=== PATIENT | female | born 1985 | race Caucasian/White ===

== ENCOUNTER 2018-03-24 11:13 | Outpatient (CLI) | payer OTHER | END 2018-03-24 14:10 | disposition home or self-care (01) | LOC: OBT 11:13 → L-D 11:14 → OBT 14:10 | DX: O36.8130 Decreased fetal movements, third trimester, not applicable or unspecified (principal); Z3A.39 39 weeks gestation of pregnancy | CPT/HCPCS: 76815; 76818 ==

== ENCOUNTER 2018-03-27 06:05 | Inpatient (IN) | payer OTHER ==
[2018-03-27] MEDS ORDERED: OXYTOCIN 30 UNITS/LR 500 ML IV ×2 (06:30→10:00)
[2018-03-27] MEDS ORDERED: MISOPROSTOL 200 MCG TAB PR ×2 (06:30→10:00)
[2018-03-27] MEDS ORDERED: METHYLERGONOVINE 0.2 MG INJ IM ×2 (06:30→10:00)
[2018-03-27] MEDS ORDERED: CARBOPROST 250 MCG INJ IM ×2 (06:30→10:00)
[2018-03-27] MEDS: LACTATED RINGER'S 1,000 ML IV ×3 (06:44→22:10)
[2018-03-27 06:55] LABS: ADD MAN DIFF? NO
[2018-03-27 06:56] LABS: BASOPHILS % 0.3 % (0.0-2.0); EOSINOPHILS # 0.1 10^3/ul (0.0-0.5); EOSINOPHILS % 1.1 % (0.0-7.0); HEMOGLOBIN 12.8 g/dl (12.0-16.0); LYMPHOCYTES # 3.2 10^3/ul (0.8-2.9); MEAN CORPUSCULAR HEMOGLOBIN 27.8 pg (29.0-33.0); MEAN CORPUSCULAR HGB CONC 32.8 g/dl (32.0-37.0); MEAN CORPUSCULAR VOLUME 84.8 fl (82.0-101.0); MEAN PLATELET VOLUME 12.5 fl (7.4-10.4); MONOCYTES % 9.7 % (0.0-11.0); NEUTROPHILS % 57.7 % (39.0-77.0); PLATELET COUNT 137 10^3/UL (140-415)
[2018-03-27 06:56] LABS: WHITE BLOOD COUNT 10.4 10^3/ul (4.8-10.8)
[2018-03-27 07:17] LABS: GLUCOSE 88 mg/dl (70-220)
[2018-03-27] MEDS ORDERED: ONDANSETRON 4 MG INJ ×2 (07:53→08:23)
[2018-03-27] MEDS ORDERED: CITRIC ACID/NA CITRATE 30 ML CUP (07:53)
[2018-03-27 08:17] LABS: HEPATITIS B SURFACE ANTIGEN NEGATIVE (NEGATIVE)
[2018-03-27] MEDS ORDERED: morphine SULFATE/PF (10 MG/10 ML) INJ (08:23)
[2018-03-27] MEDS ORDERED: PHENYLephrine (100 MCG/ML) 5ML SYG ×2 (08:23→09:26)
[2018-03-27] MEDS ORDERED: KETOROLAC 30 MG INJ (08:23)
[2018-03-27] MEDS ORDERED: METOCLOPRAMIDE 10 MG INJ (08:23)
[2018-03-27] MEDS ORDERED: DEXAMETHASONE 4 MG/ML 1 ML INJ (08:23)
[2018-03-27] MEDS ORDERED: OXYTOCIN 10 UNIT INJ (08:23)
[2018-03-27] MEDS ORDERED: BUPIVACAINE 0.75%/DEXT (SPINAL) 2 ML INJ ×2 (08:23→11:22)
[2018-03-27] MEDS: CITRIC ACID/NA CITRATE 30 ML CUP PO (08:32)
[2018-03-27] MEDS: ONDANSETRON 4 MG INJ IV ×2 (08:33→17:49)
[2018-03-27] MEDS: CEFAZOLIN 2 GM/50 ML (PMX) 50 ML IV (09:30)
[2018-03-27 09:32] LABS: PT RATIO 0.9
[2018-03-27 09:34] LABS: INR 0.81; PARTIAL THROMBOPLASTIN TIME 25.9 Sec (25.0-35.0); PROTIME 11.2 Sec (11.9-14.9)
[2018-03-27] MEDS ORDERED: OXYCODONE/ACETAMINOPHEN (5/325) TAB PO ×3 (10:00→11:00)
[2018-03-27] MEDS: OXYTOCIN 30 UNITS/LR 500 ML IV ×2 (10:22→13:15)
[2018-03-27] MEDS ORDERED: morphine 2 MG INJ IV ×2 (10:30)
[2018-03-27] MEDS ORDERED: NALOXONE (0.4 MG/ML) INJ IV (10:30)
[2018-03-27] MEDS ORDERED: HYDROmorphONE 1 MG/5 ML IV SYRINGE IV ×3 (10:30→11:00)
[2018-03-27] MEDS ORDERED: HYDROmorphONE 0.5 MG/0.5 ML SYG IV ×2 (10:30)
[2018-03-27] MEDS ORDERED: DIPHENHYDRAMINE 50 MG INJ IV ×2 (10:30→11:00)
[2018-03-27] MEDS ORDERED: ACETAMINOPHEN 500 MG TAB PO (10:30)
[2018-03-27] MEDS ORDERED: NALBUPHINE HCL (10 MG/1 ML) INJ IV (10:30)
[2018-03-27] MEDS ORDERED: HYDROCODONE/APAP (5/325) TAB PO (10:30)
[2018-03-27] MEDS ORDERED: FENTAnyl 50 MCG/ML VIAL IV ×3 (11:00)
[2018-03-27] MEDS ORDERED: EPHEDrine SULFATE 50 MG/5 ML SYG IV (11:00)
[2018-03-27] MEDS ORDERED: MEPERIDINE 25 MG INJ IV (11:00)
[2018-03-27] MEDS ORDERED: METOCLOPRAMIDE 10 MG INJ IV (11:00)
[2018-03-27] MEDS ORDERED: ONDANSETRON 4 MG INJ IV (11:00)
[2018-03-27] MEDS: KETOROLAC 30 MG INJ IV (15:08)
[2018-03-27 18:40] LABS: RAPID PLASMA REAGIN NONREACTIVE (NR)
[2018-03-27] MEDS: ACCU-CHEK XX ×2 (20:05)
[2018-03-27] MEDS: SENNA/DOCUSATE NA (8.6MG/50MG) TAB PO (21:00)
[2018-03-28] MEDS: LACTATED RINGER'S 1,000 ML IV (05:55)
[2018-03-28] MEDS: KETOROLAC 30 MG INJ IV (05:56)
[2018-03-28] MEDS: ACCU-CHEK XX ×4 (07:30→20:43)
[2018-03-28 08:05] LABS: ADD MAN DIFF? NO
[2018-03-28 08:10] LABS: ABNORMAL IP MESSAGE 1; BASOPHILS % 0.3 % (0.0-2.0); EOSINOPHILS % 0.3 % (0.0-7.0); HEMATOCRIT 32.9 % (37.0-47.0); HEMOGLOBIN 10.9 g/dl (12.0-16.0); LYMPHOCYTES # 3.7 10^3/ul (0.8-2.9); LYMPHOCYTES % 31.1 % (15.0-51.0); MEAN CORPUSCULAR HEMOGLOBIN 28.2 pg (29.0-33.0); MEAN CORPUSCULAR HGB CONC 33.1 g/dl (32.0-37.0); MEAN CORPUSCULAR VOLUME 85.2 fl (82.0-101.0); MEAN PLATELET VOLUME 13.1 fl (7.4-10.4); MONOCYTE # 1.3 10^3/ul (0.3-0.9); MONOCYTES % 10.4 % (0.0-11.0); NEUTROPHIL # 6.9 10^3/ul (1.6-7.5); NEUTROPHILS % 57.7 % (39.0-77.0); PLATELET COUNT 129 10^3/UL (140-415); RED BLOOD COUNT 3.86 10^6/ul (4.20-5.40); RED CELL DISTRIBUTION WIDTH 14.2 % (11.5-14.5)
[2018-03-28 08:25] LABS: POSITIVE DIFF @See below
[2018-03-28] MEDS: IBUPROFEN 600 MG TAB PO ×4 (08:40→23:53)
[2018-03-28] MEDS ORDERED: OXYCODONE/ACETAMINOPHEN (5/325) TAB PO (08:40)
[2018-03-28] MEDS: SENNA/DOCUSATE NA (8.6MG/50MG) TAB PO ×2 (10:18→20:43)
[2018-03-28] MEDS: OXYCODONE/ACETAMINOPHEN (5/325) TAB PO (13:34)
[2018-03-28] MEDS: FERROUS SULFATE (EC) 325 MG TAB PO (20:43)
[2018-03-29] MEDS: OXYCODONE/ACETAMINOPHEN (5/325) TAB PO ×2 (02:52→13:31)
[2018-03-29] MEDS: IBUPROFEN 600 MG TAB PO ×3 (05:29→18:07)
[2018-03-29] MEDS: ACCU-CHEK XX ×4 (08:25→20:51)
[2018-03-29] MEDS: SENNA/DOCUSATE NA (8.6MG/50MG) TAB PO ×2 (09:09→20:51)
[2018-03-29] MEDS: FERROUS SULFATE (EC) 325 MG TAB PO ×2 (09:09→20:51)
[2018-03-29] MEDS: LANOLIN 7 GM TUBE TOP (12:39)
[2018-03-30] MEDS: IBUPROFEN 600 MG TAB PO ×3 (05:58→11:53)
[2018-03-30] MEDS: ACCU-CHEK XX ×2 (07:30→10:05)
[2018-03-30] MEDS: SENNA/DOCUSATE NA (8.6MG/50MG) TAB PO (09:02)
[2018-03-30] MEDS: FERROUS SULFATE (EC) 325 MG TAB PO (09:02)
[2018-03-30] MEDS: OXYCODONE/ACETAMINOPHEN (5/325) TAB PO (09:03)
== END 2018-03-30 16:30 | disposition home or self-care (01) | DRG 766 ==
LOC: L-D 06:05 → PP1 12:19
PROVIDERS: Obstetrics & Gynecology
PROC: 10D00Z1 Extraction of Products of Conception, Low, Open Approach (ICD-10-PCS; principal; 2018-03-27 07:30)
PROC: 0UL50CZ Occlusion of Right Fallopian Tube with Extraluminal Device, Open Approach (ICD-10-PCS; 2018-03-27 07:30)
DX: O34.211 Maternal care for low transverse scar from previous cesarean delivery (principal); Z37.0 Single live birth; Z3A.39 39 weeks gestation of pregnancy; Z30.2 Encounter for sterilization; O24.429 Gestational diabetes mellitus in childbirth, unspecified control
CPT/HCPCS: 82947; 82962; 85025; 85610; 85730; 86592; 86850; 86900; 86901; 87340; 88302; 99464